=== PATIENT | male | born 1985 | race Caucasian/White ===

== ENCOUNTER 2018-04-21 13:27 | Emergency (ER) | payer SELFPAY ==
[2018-04-21] MEDS ORDERED: cefTRIAXone\\ROCEPHIN 250 MG VIAL ONE (14:16)
[2018-04-21] MEDS ORDERED: Azithromycin 250 MG TAB ONE (14:16)
[2018-04-21] MEDS ORDERED: Lidocaine 1% MPF 2 ML VIAL ONE (14:17)
[2018-04-23 22:36] LABS: Chlamydia by PCR Not Detected (NotDetected); GC by PCR DETECTED (NotDetected)
== END 2018-04-21 14:45 | disposition home or self-care (01) ==
LOC: SCSER 13:27
DX: K59.00 Constipation, unspecified (principal); K62.89 Other specified diseases of anus and rectum; R19.7 Diarrhea, unspecified; Z71.6 Tobacco abuse counseling; F17.210 Nicotine dependence, cigarettes, uncomplicated
CPT/HCPCS: 87491; 87591; 96372; 99406; J0696

== ENCOUNTER 2025-05-08 11:06 | Emergency (ER) | payer BC, OTHER ==
[2025-05-08] MEDS ORDERED: Lidocaine 1% w/Epinephrine 1:100K 20 ML VIAL ONE (11:54)
[2025-05-08] MEDS ORDERED: Sulfameth/Trimethoprim DS 800-160mg TAB ONE (12:13)
[2025-05-08] MEDS ORDERED: diphenhydrAMINE 25 MG CAP ONE (12:55)
== END 2025-05-08 13:28 | disposition home or self-care (01) ==
LOC: ERS 11:06
DX: L02.214 Cutaneous abscess of groin (principal); L03.314 Cellulitis of groin; F17.290 Nicotine dependence, other tobacco product, uncomplicated
CPT/HCPCS: 10060; 87070; 87077; 87205